=== PATIENT | female | born 1995 | race Caucasian/White ===

== ENCOUNTER 2017-08-03 22:25 | Emergency (ER) | payer OTHER ==
[~2017-08-03] VITALS: Ht 172.7 cm; Wt 152.0 kg
--- NOTE | 2017-08-03 22:51 | PHYS DOC ---
Adult General Chief Complaint Chief Complaint: NAUSEA/VOMITING/DIARRHA HPI HPI Patient is a 21 year old female with history of diabetes type 2 who presents today with nausea vomiting and slight diarrhea and right low back pain that began 3 days ago. Patient denies any fever. Denies any hematemesis or melena. Review of Systems Review of Systems Constitutional: Denies fever or chills [] Eyes: Denies change in visual acuity, redness, or eye pain [] HENT: Denies nasal congestion or sore throat [] Respiratory: Denies cough or shortness of breath [] Cardiovascular: No additional information not addressed in HPI [] GI: abdominal pain, nausea, vomiting, slight diarrhea [] : Denies dysuria or hematuria [] Musculoskeletal: Denies back pain or joint pain [] Integument: Denies rash or skin lesions [] Neurologic: Denies headache, focal weakness or sensory changes [] Endocrine: Denies polyuria or polydipsia [] Current Medications Current Medications Current Medications Medications (Trade) Dose Ordered Sig/Reema Start Time Stop Time Status Last Admin Dose Admin Acetaminophen/ Hydrocodone Bitart (Lortab 5/325) 1 tab 1X ONCE 08/03/17 23:00 08/03/17 23:01 DC 08/03/17 23:31 1 TAB Cyclobenzaprine HCl (Flexeril) 10 mg 1X ONCE 08/03/17 23:00 08/03/17 23:01 DC 08/03/17 23:31 10 MG Dicyclomine HCl (Bentyl) 20 mg 1X ONCE 08/03/17 23:00 08/03/17 23:01 DC 08/03/17 23:30 20 MG Ondansetron HCl (Zofran Odt) 4 mg 1X ONCE 08/03/17 23:00 08/03/17 23:01 DC 08/03/17 23:30 4 MG Allergies Allergies Allergies Coded Allergies Type Severity Reaction Last Updated Verified Sulfa (Sulfonamide Antibiotics) Allergy Unknown 08/03/17 Yes Physical Exam Physical Exam Constitutional: Well developed, well nourished, no acute distress, non-toxic appearance. [] HENT: Normocephalic, atraumatic, bilateral external ears normal, oropharynx moist, no oral exudates, nose normal. [] Eyes: PERRLA, EOMI, conjunctiva normal, no discharge. [] Neck: Normal range of motion, no tenderness, supple, no stridor. [] Cardiovascular:Heart rate regular rhythm, no murmur [] Lungs & Thorax: Bilateral breath sounds clear to auscultation [] Abdomen: Overweight patient. Bowel sounds normal, soft, no tenderness, no masses , no pulsatile masses. [] Skin: Warm, dry, no erythema, no rash. [] Back: Slight paraspinal muscle tenderness to the right lumbar spine, no midline lumbar spine tenderness, no CVA tenderness. [] Extremities: No tenderness, no cyanosis, no clubbing, ROM intact, no edema. [] Neurologic: Alert and oriented X 3, normal motor function, normal sensory function, no focal deficits noted. [] Psychologic: Affect normal, judgement normal, mood normal. [] Current Patient Data Vital Signs Vital Signs Date Time Temp Pulse Resp B/P (MAP) Pulse Ox O2 Delivery O2 Flow Rate FiO2 08/03/17 22:42 98.1 89 18 100 Room Air 98.1 Lab Values Laboratory Tests Test 08/03/17 22:28 08/03/17 22:45 Urine Collection Type Unknown Urine Color Yellow Urine Clarity Clear Urine pH 6.0 Urine Specific [place] >=1.030 Urine Protein 30 mg/dL (NEG-TRACE) Urine Glucose (UA) Negative mg/dL (NEG) Urine Ketones (Stick) Negative mg/dL (NEG) Urine Blood Large (NEG) Urine Nitrite Negative (NEG) Urine Bilirubin Negative (NEG) Urine Urobilinogen Dipstick 0.2 mg/dL (0.2 mg/dL) Urine Leukocyte Esterase Negative (NEG) Urine RBC >40 /HPF (0-2) Urine WBC Occ /HPF (0-4) Urine Squamous Epithelial Cells Few /LPF Urine Bacteria 0 /HPF (0-FEW) Urine Mucus Mod /LPF POC Urine HCG, Qualitative Hcg negative (Negative) EKG EKG [] Radiology/Procedures Radiology/Procedures [] Course & Med Decision Making Course & Med Decision Making Pertinent Labs and Imaging studies reviewed. (See chart for details) This is a 21-year-old female patient presenting today with diarrhea nausea vomiting that began 3 days ago. Patient Is also complaining of right low back pain. Urine analysis is negative for infection. CT of the abdomen and pelvic was negative for any acute findings. Patient was noted to have fatty liver. Her diarrhea or vomiting and nausea probably viral. Recommended she pushes fluids, maintains good hand hygiene. Discharged with Zofran, dicyclomine. Follow-up with primary care doctor next week. [place] Disclaimer Bab[place] Disclaimer This electronic medical record was generated, in whole or in part, using a voice recognition dictation system. Departure Departure Impression: Primary Impression: Nausea & vomiting Additional Impression: Diarrhea Disposition: 01 HOME, SELF-CARE Condition: STABLE Referrals: DUY FRAUSTO MD follow up in one week Patient Instructions: Diarrhea, [id number], Nausea and Vomiting Additional Instructions: You were seen for diarrhea nausea and vomiting. This are typical viral illness symptoms. Push fluids, maintain good hand hygiene. Take the prescribed medicines as ordered. Follow-up with your doctor next week, come back to the ED if symptoms worsen. Scripts Ondansetron (ZOFRAN ODT) 4 Mg Tab.rapdis 1 TAB SL Q8HRS, #15 TAB Prov: KAVITHA SCHAFER APRN 08/04/17 Dicyclomine Hcl (DICYCLOMINE HCL) 20 Mg Tablet 1 TAB PO TID, #30 TAB 1 Refill Prov: KAVITHA SCHAFER APRN 08/04/17 Problem Qualifiers Primary Impression: Nausea & vomiting Vomiting type: unspecified Vomiting Intractability: non-intractable Qualified Codes: R11.2 - Nausea with vomiting, unspecified Additional Impression: Diarrhea Diarrhea type: unspecified type Qualified Codes: R19.7 - Diarrhea, unspecified KAVITHA SCHAFER APRN Aug 03, 2017 22:51
[2017-08-03 22:52] LABS: BILIRUBIN,URINE NEGATIVE (NEG); GLUCOSE,URINE NEGATIVE (NEG); NITRITE,URINE NEGATIVE (NEG); PROTEIN,URINE 30 mg/dL (NEG-TRACE); UROBILINOGEN,URINE 0.2 mg/dL (0.2 mg/dL)
[2017-08-03 22:58] LABS: BACTERIA,URINE 0 /HPF (0-FEW); RBC,URINE >40 /HPF (0-2); SQUAMOUS EPITHELIAL CELL,UR FEW /LPF; WBC,URINE OCC /HPF (0-4)
[2017-08-03] MEDS ORDERED: DICYCLOMINE HCL 10 MG CAPSULE PO ONE (23:00)
[2017-08-03] MEDS ORDERED: ONDANSETRON ODT 4 MG TAB.RAPDIS. PO ONE (23:00)
[2017-08-03] MEDS ORDERED: CYCLOBENZAPRINE 10 MG TABLET. PO ONE (23:00)
[2017-08-03] MEDS ORDERED: HYDROcodone/APAP 5/325MG 1 TAB TABLET PO ONE (23:00)
--- NOTE | 2017-08-04 00:11 | RAD ---
CT abdomen and pelvis without contrast: Reason for examination: Low back pain for 3 days. Right flank pain. Nausea, vomiting and diarrhea. Helical images were obtained through the abdomen and pelvis with no intravenous or oral contrast administered. Reconstruction was performed in sagittal and coronal planes. Exposure: One or more of the following individualized dose reduction techniques were utilized for this examination: 1. Automated exposure control 2. Adjustment of the mA and/or kV according to patient size 3. Use of iterative reconstruction technique. The lung bases are clear. The heart size is normal with no pericardial effusion seen. The liver is enlarged at 23.6 cm and shows diffuse fatty infiltration without a focal lesion. The spleen is borderline enlarged at 13.1 cm without a focal lesion. No abnormalities are seen at the adrenal glands, pancreas or gallbladder. The abdominal aorta and inferior vena cava show no gross abnormalities. No abnormality seen at the appendix. There are a few diverticuli in the sigmoid colon but no evidence of diverticulitis. The small intestinal tract shows no abnormally dilated loops of bowel or bowel obstruction. The kidneys show no renal masses, renal calculi, hydronephrosis or evidence of obstructive uropathy. The bladder is not distended. No abnormality seen at the uterus or ovaries. No free fluid or free air seen in the abdomen or pelvis. IMPRESSION: Enlarged liver at 23.6 cm with diffuse fatty infiltration. Spleen is borderline enlarged at 13.1 cm. No other focal abnormality seen in the abdomen or pelvis. Electronically signed by: Jovanna Jeong MD (08/04/2017 12:08 AM) [facility]
[2017-08-04] MEDS ORDERED: ONDA4TAB10 SL (00:32)
[2017-08-04] MEDS ORDERED: DICY20TA3 PO (00:32)
[2017-08-04 00:50] VITALS: BP 142/94
== END 2017-08-04 00:51 | disposition home or self-care (01) ==
LOC: ER 22:25
DX: R11.2 Nausea with vomiting, unspecified (principal); R19.7 Diarrhea, unspecified; M54.5 Low back pain; E66.3 Overweight; E11.9 Type 2 diabetes mellitus without complications; Z88.2 Allergy status to sulfonamides
CPT/HCPCS: 74176; 81001; 81025; 99285; Q0162

== ENCOUNTER 2018-03-06 23:05 | Emergency (ER) | payer OTHER | END 2018-03-07 00:27 | disposition home or self-care (01) | LOC: ER 23:05 | DX: S63.91XA Sprain of unspecified part of right wrist and hand, initial encounter (principal); E11.9 Type 2 diabetes mellitus without complications; Z88.2 Allergy status to sulfonamides; W01.0XXA Fall on same level from slipping, tripping and stumbling without subsequent striking against object, initial encounter; Y93.89 Activity, other specified; Y92.090 Kitchen in other non-institutional residence as the place of occurrence of the external cause; Y99.8 Other external cause status | CPT/HCPCS: 73130; 99284 ==

== ENCOUNTER 2021-01-08 00:57 | Emergency (ER) | payer SELFPAY ==
[~2021-01-08] VITALS: Ht 175.3 cm; Wt 143.2 kg
[~2021-01-08 00:57] MED LIST: DICY20TA3 PO; ONDA4TAB10 SL
[2021-01-08] MEDS: CLINDAMYCIN HCL 150 MG CAPSULE. PO ONE (01:48)
[2021-01-08] MEDS ORDERED: CLIN300C9 PO (01:51)
--- NOTE | 2021-01-08 01:52 | ED.ADGEN ---
Past Medical History Past Medical History: Diabetes-Type II Past Surgical History: Tonsillectomy Smoking Status: Never Smoker Alcohol Use: None Drug Use: None General Adult EDM: Chief Complaint: VAGINAL PROBLEM HPI: HPI: Patient is a 25 year old female coming in for pain and swelling to her left labia. Is happy with past couple days. She thinks is associated with wearing some tight jeans. Has had ingrown hairs before. No drainage from the area. No systemic complaints. Denies any vaginal bleeding or discharge. LMP 1 week ago Review of Systems: Review of Systems: All other systems within normal limits except for as noted in the HPI Current Medications: Current Medications Medications (Trade) Dose Ordered Sig/Reema Start Time Stop Time Status Last Admin Dose Admin Clindamycin HCl (Cleocin) 300 mg 1X ONCE 01/08/21 02:00 01/08/21 02:01 DC 01/08/21 01:48 300 MG Allergies: Allergies: Allergies Coded Allergies Type Severity Reaction Last Updated Verified Sulfa (Sulfonamide Antibiotics) Allergy Intermediate 01/08/21 Yes Physical Exam: PE: Constitutional: Well developed, well nourished, no acute distress, non-toxic appearance. [] HENT: Normocephalic, atraumatic, bilateral external ears normal, oropharynx mois t, no oral exudates, nose normal. [] Eyes: PERRLA, EOMI, conjunctiva normal, no discharge. [] Neck: Normal range of motion, no tenderness, supple, no stridor. [] Cardiovascular:Heart rate regular rhythm, no murmur [] Lungs & Thorax: Bilateral breath sounds clear to auscultation [] Abdomen: Bowel sounds normal, soft, no tenderness, no masses, no pulsatile masses. [] Skin: Warm, dry, no erythema, no rash. Right labia erythematous without fluctuance or palpable fluid collection. [] Back: No tenderness, no CVA tenderness. [] Extremities: No tenderness, no cyanosis, no clubbing, ROM intact, no edema. [] Neurologic: Alert and oriented X 3, normal motor function, normal sensory function, no focal deficits noted. [] Psychologic: Affect normal, judgement normal, mood normal. [] Current Patient Data: Labs: Laboratory Tests Test 01/08/21 01:06 POC Urine HCG, Qualitative Hcg negative (Negative) Vital Signs: Vital Signs Date Time Temp Pulse Resp B/P (MAP) Pulse Ox O2 Delivery O2 Flow Rate FiO2 01/08/21 02:00 106 125/61 (82) 96 Room Air 01/08/21 01:28 98.1 16 98.1 EKG: EKG: [] Heart Score: C/O Chest Pain: No Risk Factors: Risk Factors: DM, Current or recent (<one month) smoker, HTN, HLP, family history of CAD, obesity. Risk Scores: Score 0 - 3: 2.5% MACE over next 6 weeks - Discharge Home Score 4 - 6: 20.3% MACE over next 6 weeks - Admit for Clinical Observation Score 7 - 10: 72.7% MACE over next 6 weeks - Early Invasive Strategies Radiology/Procedures: Radiology/Procedures: [] Course & Med Decision Making: Course & Med Decision Making Patient consistent with cellulitis, discussed return precautions if abscess forms. Dragon Disclaimer: Dragon Disclaimer: This electronic medical record was generated, in whole or in part, using a voice recognition dictation system. Departure Departure Impression: Primary Impression: Infection of labia Disposition: 01 DC HOME SELF CARE/HOMELESS Condition: STABLE Referrals: ONI ERNST (PCP) Patient Instructions: Cellulitis Additional Instructions: Can use Tucks medicated pads to alleviate pain, warm compresses as needed. Scripts Fluconazole (DIFLUCAN) 150 Mg Tablet 1 TAB PO WEEKLY for antifungal for 2 Days, #2 TAB 1 Refill Prov: DARLENE RANGEL MD 01/08/21 Clindamycin Hcl (CLINDAMYCIN HCL) 300 Mg Capsule 1 CAP PO QID for antibiotic for 7 Days, #28 CAP Prov: DARLENE RANGEL MD 01/08/21 DARLENE RANGEL MD Jan 08, 2021 01:51
[2021-01-08 02:00] VITALS: BP 125/61
[2021-01-08] MEDS ORDERED: FLUC150T PO (02:08)
[2021-01-09] MEDS ORDERED: HYDR-2759 PO (15:58)
== END 2021-01-08 02:15 | disposition home or self-care (01) ==
LOC: ER 00:57
DX: N76.2 Acute vulvitis (principal); R10.2 Pelvic and perineal pain; R60.0 Localized edema; L53.9 Erythematous condition, unspecified; E11.9 Type 2 diabetes mellitus without complications; Z90.89 Acquired absence of other organs; Z88.2 Allergy status to sulfonamides
CPT/HCPCS: 81025; 99283

== ENCOUNTER 2021-01-09 12:38 | Emergency (ER) | payer SELFPAY ==
[~2021-01-09] VITALS: Ht 175.3 cm; Wt 141.0 kg
[~2021-01-09 12:38] MED LIST changes: +CLIN300C9 PO; +FLUC150T PO
[2021-01-09 13:00] VITALS: BP 147/67
--- NOTE | 2021-01-09 13:25 | PHYS DOC ---
Past Medical History Past Medical History: Diabetes-Type II, Other Additional Past Medical Histor: herpes Past Surgical History: Tonsillectomy Smoking Status: Never Smoker Alcohol Use: None Drug Use: None General Adult EDM: Chief Complaint: ABSCESS HPI: HPI: Patient is a 25 year old female with history of diabetes type 2 presented to the ED today complaining of an abscess on the left labia that she has had it si nce last week roughly 5 days. Patient states she is in the ED 3 days ago and was discharged home on clindamycin. She states it is not helping. She states the abscess has grown bigger. Denies any fever, nausea vomiting. Review of Systems: Review of Systems: Constitutional: Denies fever or chills. [] Musculoskeletal: Denies back pain or joint pain. [] Integument: Reports left labia abscess Neurologic: Denies headache, focal weakness or sensory changes. [] Psychiatric: Denies depression or anxiety. [] Heart Score: C/O Chest Pain: No Risk Factors: Risk Factors: DM, Current or recent (<one month) smoker, HTN, HLP, family history of CAD, obesity. Risk Scores: Score 0 - 3: 2.5% MACE over next 6 weeks - Discharge Home Score 4 - 6: 20.3% MACE over next 6 weeks - Admit for Clinical Observation Score 7 - 10: 72.7% MACE over next 6 weeks - Early Invasive Strategies Allergies: Allergies: Allergies Coded Allergies Type Severity Reaction Last Updated Verified Sulfa (Sulfonamide Antibiotics) Allergy Intermediate 01/08/21 Yes Physical Exam: PE: Constitutional: Well developed, well nourished, no acute distress, non-toxic appearance. [] Skin: Left labia majora with mild swelling consistent of a Bartholin. The area is firm, warm and tender to touch. Back: No tenderness, no CVA tenderness. [] Extremities: No tenderness, no cyanosis, no clubbing, ROM intact, no edema. [] Neurologic: Alert and oriented X 3, normal motor function, normal sensory function, no focal deficits noted. [] Psychologic: Affect normal, judgement normal, mood normal. [] Current Patient Data: Vital Signs: Vital Signs Date Time Temp Pulse Resp B/P (MAP) Pulse Ox O2 Delivery O2 Flow Rate FiO2 01/09/21 13:00 97.6 120 16 147/67 (93) 99 Room Air 97.6 EKG: EKG: [] Radiology/Procedures: Radiology/Procedures: Indication: Left labia majora Bartholin cyst Procedure: The patient was positioned appropriately. Local anesthesia was 1% of lidocaine mixed with 0.5% of Bupivicaine. An incision was then made over the apex of the lesion with an 11 blade and moderate amount of bloody yellow material was expressed. The drainage cavity was irrigated and word catheter inflated with 5cc of air applied in the cavity. The patients tetanus status updated as needed. The patient tolerated the procedure well. Complications: none. Course & Med Decision Making: Course & Med Decision Making Pertinent Labs and Imaging studies reviewed. (See chart for details) This is a 25-year-old female patient presented to the ED today with a Bartholin cyst of the left labia that she has had it for 5 days. She was in the ED 3 days ago and was started with antibiotics. Patient reports no relief from the antibiotics, she states the area has gotten bigger. Physical exam is consistent with a Bartholin cyst which I drained in the emergency room and Bartholin Word catheter applied. Instructed patient to return to the ED in 3 days for catheter removal. Tetanus updated. Dragon Disclaimer: Dragon Disclaimer: This electronic medical record was generated, in whole or in part, using a voice recognition dictation system. Departure Departure Impression: Primary Impression: Cyst of left Bartholin's gland Disposition: 01 DC HOME SELF CARE/HOMELESS Condition: STABLE Referrals: NO PCP (PCP) follow up with the ER on Sunday between 11am-11pm Patient Instructions: Bartholin's Cyst and Abscess-Brief Additional Instructions: You have a Bartholin cyst that was drained in the emergency room. You have a Bartholin cyst catheter in your left labia to keep it open and draining. You can shower and wash your vagina as you normally do. Consider applying warm compresses to the vagina once to twice a day. Please take the prescribed pain medicine as needed. Please come back in the emergency room on Sunday for catheter removal Scripts Hydrocodone/Acetaminophen (Hydrocodone-Acetamin 5-325 mg) 1 Each Tablet 1 EACH PO Q6HRS PRN for PAIN, #20 TAB Prov: KAVITHA SCHAFER APRN 01/09/21 KAVITHA SCHAFER APRN Jan 09, 2021 13:25
[2021-01-09] MEDS ORDERED: BUPIVACAINE MPF 0.5% 30 ML VIAL. INJ ONE (13:30)
[2021-01-09] MEDS ORDERED: FLUCONAZOLE 100 MG TABLET. PO ONE (13:30)
[2021-01-09] MEDS ORDERED: LIDOCAINE 1% PF 2 ML VIAL. INJ ONE (13:30)
[2021-01-09] MEDS ORDERED: DIPH,PERTUSS(ACELL),TET VAC/PF 0.5 ML SYRINGE. VAX IM ONE (13:30)
[2021-01-09] MEDS ORDERED: NAPROXEN 500 MG TABLET PO STA (13:46)
[2021-01-09] MEDS ORDERED: HYDROcodone/APAP 5/325MG 1 TAB TABLET PO ONE (14:00)
[2021-01-09] MEDS ORDERED: HYDR-2759 PO (15:58)
== END 2021-01-09 15:58 | disposition home or self-care (01) ==
LOC: ER 12:38
DX: N75.1 Abscess of Bartholin's gland (principal); E11.9 Type 2 diabetes mellitus without complications; Z90.89 Acquired absence of other organs; Z98.890 Other specified postprocedural states; Z88.2 Allergy status to sulfonamides
CPT/HCPCS: 56420; 90471; 90715; 99284; J3490

== ENCOUNTER 2021-01-12 18:09 | Emergency (ER) | payer SELFPAY ==
[~2021-01-12] VITALS: Ht 175.3 cm; Wt 143.2 kg
[~2021-01-12 18:09] MED LIST changes: +HYDR-2759 PO
[2021-01-12] MEDS ORDERED: LIDOCAINE 1% Multi-Dose 20 ML VIAL. INJ ONE (19:00)
[2021-01-12 19:30] VITALS: BP 145/83
--- NOTE | 2021-01-12 20:46 | PHYS DOC ---
Past Medical History Past Medical History: Diabetes-Type II, Other Additional Past Medical Histor: herpes Past Surgical History: Tonsillectomy Smoking Status: Never Smoker Alcohol Use: None Drug Use: None General Adult EDM: Chief Complaint: WOUND CHECK HPI: HPI: Patient is a 25 year old female who presents the ED today for wound check and word catheter removal for Bartholin cyst that was drained 3 days ago. Denies any fever. Review of Systems: Review of Systems: Constitutional: Denies fever or chills. [] Musculoskeletal: Denies back pain or joint pain. [] Integument: Visit for wound check and catheter removal Neurologic: Denies headache, focal weakness or sensory changes. [] Psychiatric: Denies depression or anxiety. [] Heart Score: C/O Chest Pain: N/A Risk Factors: Risk Factors: DM, Current or recent (<one month) smoker, HTN, HLP, family history of CAD, obesity. Risk Scores: Score 0 - 3: 2.5% MACE over next 6 weeks - Discharge Home Score 4 - 6: 20.3% MACE over next 6 weeks - Admit for Clinical Observation Score 7 - 10: 72.7% MACE over next 6 weeks - Early Invasive Strategies Current Medications: Current Medications Medications (Trade) Dose Ordered Sig/Reema Start Time Stop Time Status Last Admin Dose Admin Lidocaine HCl (Lidocaine 1% 20ml Vial) 20 ml 1X ONCE 01/12/21 19:00 01/12/21 19:02 DC Allergies: Allergies: Allergies Coded Allergies Type Severity Reaction Last Updated Verified Sulfa (Sulfonamide Antibiotics) Allergy Intermediate 01/08/21 Yes Physical Exam: PE: Constitutional: Well developed, well nourished, no acute distress, non-toxic appearance. [] Skin: Left labia majora with a word Bartholin cyst catheter, there is still mild drainage coming out of the cyst though the induration has gone down tremendously. No erythema. I recommended she returns in a couple days for wound check and catheter removal Back: No tenderness, no CVA tenderness. [] Extremities: No tenderness, no cyanosis, no clubbing, ROM intact, no edema. [] Neurologic: Alert and oriented X 3, normal motor function, normal sensory function, no focal deficits noted. [] Psychologic: Affect normal, judgement normal, mood normal. [] Current Patient Data: Vital Signs: Vital Signs Date Time Temp Pulse Resp B/P (MAP) Pulse Ox O2 Delivery O2 Flow Rate FiO2 01/12/21 19:30 98.3 105 18 145/83 (103) 97 Room Air 98.3 EKG: EKG: [] Radiology/Procedures: Radiology/Procedures: [] Course & Med Decision Making: Course & Med Decision Making Pertinent Labs and Imaging studies reviewed. (See chart for details) This is a 25-year-old female patient presented to the ED today for wound check and word catheter removal from left labia from a Bartholin cyst. The cyst was drained 3 days ago. There is still mild drainage coming from the labia. I recommended she keeps the catheter in for couple more days. Is supposed to go to a wedding in [place]. She will be back in the ED on Sunday for catheter removal. James Disclaimer: James Disclaimer: This electronic medical record was generated, in whole or in part, using a voice recognition dictation system. Departure Departure Impression: Primary Impression: Cyst of left Bartholin's gland Additional Impression: Visit for wound check Disposition: 01 DC HOME SELF CARE/HOMELESS Condition: STABLE Referrals: NO PCP (PCP) follow up in one week Patient Instructions: Bartholin's Cyst and Abscess-Brief, Wound Check Additional Instructions: You have a Bartholin cyst word catheter in your labia. Continue applying warm compresses to the area. You can shower with soap and water. Please come back to the ED as discussed on Sunday for catheter removal and wound check KAVITHA SCHAFER APRN Jan 12, 2021 20:46
== END 2021-01-12 21:00 | disposition home or self-care (01) ==
LOC: ER 18:09
DX: N75.0 Cyst of Bartholin's gland (principal); E11.9 Type 2 diabetes mellitus without complications; Z88.2 Allergy status to sulfonamides
CPT/HCPCS: 99281